=== PATIENT | male | born 1970 | race Caucasian/White ===

== ENCOUNTER → 2020-08-06 11:31 | Outpatient (BNVA) | payer OTHER, SELFPAY | PROVIDERS: Family Provider Family Medicine; PCP Family Medicine; Visit Provider Nurse Practitioner Family | DX: M25.511 Pain in right shoulder (principal) | CPT/HCPCS: 73030 ==

== ENCOUNTER 2020-09-11 09:08 | Outpatient (CLI) | payer OTHER, SELFPAY ==
--- NOTE | 2020-09-11 09:30 | MR_ITS ---
WS: [id number] MRI RIGHT SHOULDER HISTORY: injury to right shoulder without recovery COMPARISON: RIGHT shoulder radiograph 08/06/2020 TECHNIQUE: Multiplanar sequences of the shoulder joint are submitted. Minimal AC joint hypertrophy. There is a small amount of fluid at the AC ligament. No os acromion. No encroachment upon the supraspinatus. Biceps tendon is in normal position. Small amount of fluid in the subacromial and subdeltoid bursa. Focal insertion site tear involving th e supraspinatus tendon. No muscle atrophy or retraction. Tear measures approximately 5 mm. There is a dditional mild fraying of the distal tendon and tendinopathy. No joint effusion. Abnormal configurati on of the inferior glenoid. There is soft tissue thickening at the labrum. No definite increased sign al within the labrum but the quality of examination involving the labrum is limited. MR/MR shoulder RT wo con* [id number] IMPRESSION: 1. Small insertion site tear supraspinatus without retraction. 2. Mild AC ligament sprain. 3. Poor visualization of the inferior glenoid and labrum. Suspicious but indet erminate for inferior labral tear. There is no marrow edema.
== END 2020-09-11 09:09 | disposition home or self-care (01) ==
LOC: RADSHAW 09:11
PROVIDERS: Family Provider Family Medicine; PCP Family Medicine; Visit Provider Family Medicine
DX: M75.101 Unspecified rotator cuff tear or rupture of right shoulder, not specified as traumatic (principal); S43.51XA Sprain of right acromioclavicular joint, initial encounter; X58.XXXA Exposure to other specified factors, initial encounter
CPT/HCPCS: 73221

== ENCOUNTER → 2022-06-26 08:56 | Outpatient (BNVA) | payer SELFPAY | PROVIDERS: Family Provider Family Medicine; PCP Family Medicine; Visit Provider Family Medicine | DX: Z13.6 Encounter for screening for cardiovascular disorders (principal) | CPT/HCPCS: 80061; 82947; 83036 ==